=== PATIENT | male | born 1945 | race Caucasian/White ===

== ENCOUNTER 2023-12-20 03:12 | Emergency (ER) | payer OTHER, BC ==
[~2023-12-20] VITALS: Ht 182.9 cm; Wt 136.1 kg
[2023-12-20 03:19] VITALS: PULSE 223; RESP 11; TEMP 98; O2SAT 79
[2023-12-20 09:52] VITALS: PULSE 223; RESP 11; TEMP 98; O2SAT 79
== END 2023-12-20 03:23 ==
LOC: MED 03:12
DX: I46.9 Cardiac arrest, cause unspecified (principal); E11.22 Type 2 diabetes mellitus with diabetic chronic kidney disease; I12.0 Hypertensive chronic kidney disease with stage 5 chronic kidney disease or end stage renal disease; N18.6 End stage renal disease; Z99.2 Dependence on renal dialysis
CPT/HCPCS: 31500; 92950; 99285